=== PATIENT | male | born 1965 | race Two or more races ===

== ENCOUNTER 2025-04-17 09:08 | Outpatient (CLI) | payer OTHER ==
[~2025-04-17] VITALS: Ht 177.8 cm; Wt 90.7 kg
[2025-04-17] MEDS: REGADENOSON 0.4 MG/5 ML SYRG IV ONE (10:56)
[2025-04-17] MEDS ORDERED: REGADENOSON 0.4 MG/5 ML SYRG IV ONE (11:00)
--- NOTE | 2025-04-23 14:14 | DVHSR ---
APPROVED REPORT Exam: Nuclear Stress Test BMI: 0 Stress Test Details Stress Test: Pharmacologic stress testing performed using 0.4 mg of regadenoson per 5 mL given IV over 10 seconds. HR Resting HR: 57 bpm Max Heart Rate (APMHR): 163.898919 bpm Max HR Achieved: 86 bpm Target HR (85% APMHR): 138.816505 bpm % of APMHR: 52.76 Recovery HR: 68 bpm BP Resting BP: 116/88 mmHg Recovery BP: 127/85 mmHg ECG Resting ECG: Sinus Bradycardia Clinical Reason for Termination: Completed protocol Nurse Comments Recieved pt. from [email or web address]. A/Ox4 on RA. Connected to secured entrance monitor, VS stable. PIV flushes well. Reviewed POC. Pt. verbalized understanding of procedure including risks and side effects, agrees for stress testing. Lexiscan stress test performed per protocol. Advanced Brain Monitoring administered Cardiolite. Pt. tolerated well. Pt. stable, no change on exam. VS returned to baseline. Transferred to [email or web address] via wheelchair w/ tech, escorted by guards. Stress ECG Conclusion lvef 45% normal pefusion scan no ischemia mild LV dysfunction NM EXAM: Myocardial Perfusion REST/STRESS Imaging Protocol: Rest Tc-99m/Stress Tc-99m 1 day Resting Data Rest SPECT myocardial perfusion imaging was performed in supine position 60 minutes following the intravenous injection of 10.5 mCi of Tc-99m Sestamibi. Time of rest injection: 0900 Time of rest imagin Administration Route: IV Administration Site: Left AC Pharmacologic Stress Pharmacologic stress test was performed by injecting Regadenoson 0.4 mg IV push followed by the intravenous injection of 31.6 mCi of Tc-99m Sestamibi. Time of stress injection: 1030 Time of stress imagin Administration Route: IV Administration Site: Left AC Gated Stress SPECT was performed 45 minutes after stress injection. The images were gated to evaluate regional wall motion and calculate left ventricular ejection fraction. Nuclear Conclusion Nuclear Findings: negative for ischemia lvef 45% normal pefusion scan no ischemia mild LV dysfunction
== END 2025-04-17 17:00 | disposition home or self-care (01) ==
LOC: XYW 09:08
PROVIDERS: ATTEND Internal Medicine
DX: R00.1 Bradycardia, unspecified (principal); R07.9 Chest pain, unspecified
CPT/HCPCS: 78452; 93017; A9500; J2785